=== PATIENT | male | born 1930 | race Hispanic/Latino ===

== ENCOUNTER 2020-12-10 14:37 | Emergency (ER) | payer OTHER ==
--- OUTSIDE RECORDS SUMMARY | 2020-12-10 14:39 | XMS REPORT | Continuity of Care Document ---
:1930 Author Organization [facility] t Address [address] [place] [address] Dr. 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 00:00: Practi c 00 e Body mass Body Mass Problem Active 2020-0 Sourav raheem index Index 02-17 Family 25-29 - 25-29 - 00:00: Practic overweight Overweight 00 e Alzheimer' Alzheimer' Problem Active 2020-0 V illage s disease s Disease 02-17 Fami ly 00:00: Practic 00 e 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 00:00: Pr actic a a 00 e Fatigue Fatigue Problem Active 2020-0 [facility] - Family 00:00: Practic 00 e Urinary Urinary Problem Active 2020-0 [facility] incontinen Incontinen 6 earle ce ce 00:00: Practic 00 e Depression Depression Problem Active 2020-0 [facility] screening Screening 6 Fami ly 00:00: Practic 00 e Advance Advance Problem Active 2020-0 [place] directive Directive 02-17 Fami ly discussed Discussed 00:00: Prac tic with with 00 e patient Patient Dementia Problem Active 2020-11-27 Mem oria (disorder) 22:57:06 l Dementia Shaheen n (disorder) Active Problem 11/27/2020 [facility] 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 22:57:06 l (disorder) Shaheen n Hypothyroi dism (disorder) Active Problem 11/27/2020 [facility] Lumbar Problem Active 2020-11-27 Memor ia radiculopa 22:57:06 l thy Lumbar Omkar (disorder) radiculopa thy (disorder) Active Problem 11/27/2020 [facility] Allergies, Adverse Reactions, Alerts Allergy Allergy Status Severity Reaction(s) Onset Inactive Treating Comm ents Source Name Type Date Date Clinician PENICILL Allergy Active Mild Rash [place] INS to Family substanc Practic e e penicill penicill Active Memori a in in izzy Espitia Social History Smoking Status Start Date Stop Date Source Heavy Tobacco Smoker [facility] Social History 2020-01-01 14:49:04 [facility] Medications Ordered Filled Start Stop Current Ordering Indication Dosage Frequency Signature Comments Components Source Medication Medication Date Date Medication? Clinician (SIG) Name Name Donepezil Yes 5 mg = 1 Eliu johann hydrochlori 4-16 tab, PO, l de 5 MG 14:44: Daily, # Shaheen n Oral Tablet 00 30 tab, 6 [Aricept] Refill(s), Pharmacy: [facility] 149 bimatoprost Yes 1 drp, Eliu johann 0.1 MG/ML 6-06 BOTH EYES, l Ophthalmic 19:11: Bedtime, # H ermann Solution 00 5 mL, 4 [Lumigan] Refill(s) lisinopril Yes 20 mg = 1 Me moria 20 mg oral 6-06 tab, PO, l tablet 19:11: Daily, # [place] 00 30 tab, 0 Refill(s) 24 HR Yes 1 cap, PO, Memori a Donepezil 1-04 Daily, # l hydrochlori 19:57: 90 cap, 2 H ermann de 10 MG / 00 Refill(s), [facility] Pharmacy: hydrochlori [facility] de 28 MG [facility] Extended 149 Release Oral Capsule [Namzaric] finasteride Yes 5 mg = 1 Me moria 5 mg oral 1-04 tab, PO, l tablet 19:41: Daily, # Omkar 00 30 tab, 0 Refill(s) levothyroxi Yes 50 Memori a ne 50 mcg 1-04 microgram l (0.05 mg) 19:41: = 1 tab, Herm maya oral tablet 00 PO, Daily, # 30 tab, 0 Refill(s) 24 HR No 1 cap, PO, Memori a Donepezil 1-04 Daily, 0 l hydrochlori 19:41: Refill(s) H ermann de 10 MG / 00 Memantine hydrochlori de 28 MG Extended Release Oral Capsule [Namzaric] tamsulosin No 0.4 mg = 1 M emoria 0.4 mg oral 1-04 cap, PO, l capsule 19:41: Daily, # Shaheen n 00 30 cap, 0 Refill(s) celecoxib celecoxib No 1capsul Q1D celecoxib [facility] 100 mg 100 mg e(s) 100 mg Family capsule capsule capsule Practi c Take 1 Take 1 Take 1 e capsule capsule capsule every day every day every day by oral by oral by oral route. route. route. donepezil 5 donepezil 5 No 1 Q1D donepezil [facility] mg tablet mg tablet 5 mg Famil y Take 1 Take 1 tablet Practic tablet tablet Take 1 e every day every day tablet by oral by oral every day route. route. by oral route. Fluzone Fluzone No Fluzone [facility] High-Dose High-Dose High-Dose Family Practi c (PF) 180 (PF) 180 (PF) 180 e mcg/0.5 mL mcg/0.5 mL mcg/0.5 mL intramuscul intramuscul intramuscu ar syringe ar syringe lar syringe ibuprofen ibuprofen No 2 ibuprofen [facility] 200 mg 200 mg 200 mg Family tablet Take tablet Take tablet Practic 2 tablets 2 tablets Take 2 e as needed as needed tablets as by oral by oral needed by route. route. oral route. oxybutynin oxybutynin No 1 Q1D oxybutynin [facility] chloride ER chloride ER chloride Family 15 mg 15 mg ER 15 mg Practic tablet,exte tablet,exte tablet,ext e nded nded ended release 24 release 24 release 24 hr Take 1 hr Take 1 hr Take 1 tablet tablet tablet every day every day every day by oral by oral by oral route. route. route. tamsulosin tamsulosin No 1capsul Q1D tamsulosin [facility] 0.4 mg 0.4 mg e(s) 0.4 mg Family capsule capsule capsule Practi c Take 1 Take 1 Take 1 e capsule capsule capsule every day every day every day by oral by oral by oral route. route. route. Immunizations Ordered Immunization Filled Immunization Date Status Commen ts Source Name Name influenza, influenza, 2019-09-18 Completed [facility] injectable, injectable, 00:00:00 Practice quadrivalent quadrivalent Vital Signs Vital Name Observation Time Observation Value Comments Source Height 2020-03-22 00:00:00 63 [in_i] [facility] Practice BMI (Body Mass 2020-03-22 00:00:00 29.2 kg/m2 [facility] Index) Practice Body Weight 2020-03-22 00:00:00 165 [lb_av] [facility] Height 2020-02-18 00:00:00 63 [in_i] [facility] BMI (Body Mass 2020-02-18 00:00:00 26.6 kg/m2 [facility] Index) Practice Body Weight 2020-02-18 00:00:00 150 [lb_av] [facility] Systolic (mm Hg) 2019-08-22 19:57:00 Eliu rial [place] Diastolic (mm Hg) 2019-08-22 19:57:00 Mem orial [place] Heart Rate 2019-08-22 19:57:00 [facility] [place] Respitory Rate 2019-08-22 19:57:00 Memori al [place] Height 2019-08-22 19:57:00 160.02 cm [facility] [place] Weight 2019-08-22 19:57:00 [facility] [place] BMI Calculated 2019-08-22 19:57:00 Memori al [place] Weight 2019-02-20 19:07:00 [facility] [place] BMI Calculated 2019-02-20 19:07:00 Memori al [place] Height 2019-02-20 19:07:00 162.56 cm [facility] [place] Respitory Rate 2019-02-20 19:07:00 Memori al [place] Heart Rate 2019-02-20 19:07:00 [facility] [place] Systolic (mm Hg) 2019-02-20 19:07:00 Eliu rial [place] Diastolic (mm Hg) 2019-02-20 19:07:00 Mem orial [place] Heart Rate 2018-09-20 19:32:00 [facility] [place] BMI Calculated 2018-09-20 19:32:00 Memori al [place] Weight 2018-09-20 19:32:00 [facility] [place] Height 2018-09-20 19:32:00 165.1 cm [facility] [place] Systolic (mm Hg) 2018-09-20 19:32:00 Eliu britt [place] Diastolic (mm Hg) 2018-09-20 19:32:00 Mem orial [place] Respitory Rate 2018-09-20 19:32:00 Memori al [place] Procedures This patient has no known procedures. Plan of Care Planned Activity Planned Date Details Comments Source Diagnostic Test 2020-03-22 PSA, serum or Janice lujan Pending 00:00:00 plasma [code = Practice PSA, serum or plasma] Encounters Start End Encounter Admission Attending Care Care Encounter Source Date/Time Date/Time Type Type Clinicians Facility Department ID 2020-11-25 2020-11-25 Outpatient YASSINE Menendez [facility] [id number] 13:45:00 13:45:00 Jian [facility] 2020-03-22 2020-03-22 Joe [place] - [id number] [facility] 00:00:00 00:00:00 Malcolm PATHOLOGY MANAGER: Janice lujan [address] [facility], [email or web address] [place] [phone] , Ph. 2020-02-18 2020-02-18 Joe [place] - [id number] [facility] 00:00:00 00:00:00 Malcolm PATHOLOGY MANAGER: Janice lujan [address] [facility], [email or web address] [place] [phone] , Ph. 2020-02-12 2020-02-12 Outpatient RADHA MenendezSCHER [facility]ER [id number] 11:30:00 11:30:00 Jian Joselito 2020-01-01 2020-01-01 Outpatient RADHA MenendezSCHADRIENNE [facility]ATS[facility] [id number] 09:45:00 23:59:59 Jian Joselito 2019-10-23 2019-10-23 Outpatient RADHA MenendezSCHER [facility] [id number] 13:45:00 13:45:00 Jian Joselito 2019-08-22 2019-08-22 Outpatient YASSINE Menendez [facility] [id number] 13:30:00 23:59:59 Jian 02 Joselito 2019-02-20 2019-02-20 Outpatient Gemma [facility] [id number] 13:30:00 23:59:59 Jian Joselito 2018-09-20 2018-09-20 Outpatient Gemma [facility] [id number] 13:15:00 23:59:59 Jian Joselito Results This patient has no known results.
[2020-12-10] MEDS ORDERED: ACETAMINOPHEN 325 MG TABLET ONE (18:03)
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
[2020-12-10 20:00] LABS: Absolute Lymphocytes (CBC) 1.5 K/uL (0.7-4.9); Basophils % 0.4 % (0-1.3); Hematocrit 35.7 % (39.6-49.0); Lymphocytes % 19.8 % (15.3-44.8); MPV 8.4 fL (7.6-11.3); RBC Red Blood Cell Count 4.07 M/uL (4.33-5.43)
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
[2020-12-10] MEDS ORDERED: FENTANYL CITR 100 MCG/2 ML ONE (23:43)
[2020-12-11 17:05] VITALS: TEMP 98.1
[2020-12-11 17:06] VITALS: O2SAT 97
[2020-12-11 17:08] VITALS: BP 164/78
== END 2020-12-11 00:31 | disposition short-term general hospital (02) ==
LOC: ER 14:37
DX: S12.000A Unspecified displaced fracture of first cervical vertebra, initial encounter for closed fracture (principal); V43.52XA Car driver injured in collision with other type car in traffic accident, initial encounter; Z20.822 Contact with and (suspected) exposure to COVID-19; F03.90 Unspecified dementia, unspecified severity, without behavioral disturbance, psychotic disturbance, mood disturbance, and anxiety; F17.210 Nicotine dependence, cigarettes, uncomplicated; Z88.0 Allergy status to penicillin
CPT/HCPCS: 93005; 85025; 80048; 36415; 86900; 86850; 85610; 86901; 85730; 70450; 72125; 71260; 74177; 72170; 73502; 73562; 96374; 99285; U0003; Q9967; J3010

== ENCOUNTER 2020-12-17 17:24 | Emergency (ER) | payer OTHER ==
--- OUTSIDE RECORDS SUMMARY | 2020-12-17 17:28 | XMS REPORT | Continuity of Care Document ---
:1930 Author Organization [facility] t Address [address] [place] [address] Dr. Gillis [address] [place] [address] Care Team Providers Name Role Phone Joselito [...] 00 e Urinary Urinary Problem Active 2020-0 [facility] incontinen Incontinen 6 earle ce ce 00:00: [...] Memor ia radiculopa 22:57:06 l thy Lumbar [place] (disorder) radiculopa thy (disorder) Active Problem 11/27/2020 [facility] Allergies, Adverse Reactions, Alerts Allergy Allergy Status Severity Reaction(s) Onset Inactive Treating Comm ents Source Name Type Date Date Clinician PENICILL Allergy Active Mild Rash [place] [facility] to Family substanc Practic e e penicill penicill Active Memori a in in izzy Espitia Social History Smoking Status Start Date Stop Date Source Heavy Tobacco Smoker [facility] Social History 2020-01-01 14:49:04 [facility] Medications Ordered Filled Start Stop Current Ordering Indication Dosage Frequency Signature Comments Components Source Medication Medication Date Date Medication? Clinician (SIG) Name Name Donepezil Yes 5 mg = 1 Eliu johann hydrochlori 4-16 tab, PO, l de 5 MG 14:44: Daily, # Shaheen n Oral Tablet 00 30 tab, 6 [Aricept] Refill(s), Pharmacy: [facility] 149 bimatoprost Yes 1 drp, Eliu johann 0.1 MG/ML 6-06 BOTH EYES, l Ophthalmic 19:11: Bedtime, # H ermann Solution 00 5 mL, 4 [Lumigan] Refill(s) lisinopril Yes 20 mg = 1 Me moria 20 mg oral 6-06 tab, PO, l tablet 19:11: Daily, # Omkar 00 30 tab, 0 Refill(s) 24 HR Yes 1 cap, PO, Memori a Donepezil 1-04 Daily, # l hydrochlori 19:57: 90 cap, 2 H ermann de 10 MG / 00 Refill(s), [facility] Pharmacy: hydrochlori [facility] de 28 MG [facility] Extended 149 Release Oral Capsule [Namzaric] finasteride [...] Refill(s) celecoxib celecoxib No 1capsul Q1D celecoxib [facility] 100 mg 100 mg e(s) 100 mg [...] lar syringe ibuprofen ibuprofen No 2 ibuprofen [facility] 200 mg 200 mg 200 mg Family tablet Take tablet Take tablet Practic 2 tablets 2 tablets Take 2 e as needed as needed tablets as by oral by oral needed by route. route. oral route. oxybutynin oxybutynin No 1 Q1D oxybutynin [facility] chloride ER chloride ER chloride Family 15 mg 15 mg ER 15 mg Practic tablet,exte tablet,exte tablet,ext e nded nded ended release 24 release 24 release 24 hr Take 1 hr Take 1 hr Take 1 tablet tablet tablet every day every day every day by oral by oral by oral route. route. route. tamsulosin tamsulosin No 1capsul Q1D tamsulosin [facility] 0.4 mg 0.4 mg e(s) 0.4 mg Family capsule capsule capsule Practi c Take 1 Take 1 Take 1 e capsule capsule capsule every day every day every day by oral by oral by oral route. route. route. Immunizations Ordered Immunization Filled Immunization Date Status Commen ts Source Name Name influenza, influenza, 2019-09-18 Completed [facility] injectable, injectable, 00:00:00 Practice quadrivalent quadrivalent Vital Signs Vital Name Observation Time Observation Value Comments Source Height 2020-03-22 00:00:00 63 [in_i] [facility] Practice BMI (Body Mass 2020-03-22 00:00:00 29.2 kg/m2 [facility] Body Weight 2020-03-22 00:00:00 165 [lb_av] [facility] Height 2020-02-18 00:00:00 63 [in_i] [facility] BMI (Body Mass 2020-02-18 00:00:00 26.6 kg/m2 [facility] Body Weight 2020-02-18 00:00:00 150 [lb_av] [facility] Systolic (mm Hg) 2019-08-22 19:57:00 Eliu rial [place] Diastolic (mm Hg) 2019-08-22 19:57:00 Mem orial [facility] Heart Rate 2019-08-22 19:57:00 [facility] Respitory Rate 2019-08-22 19:57:00 [facility] al [place] Height 2019-08-22 19:57:00 160.02 cm [facility] Weight 2019-08-22 19:57:00 [facility] [place] BMI Calculated 2019-08-22 19:57:00 [facility] [place] Weight 2019-02-20 19:07:00 [facility] BMI Calculated 2019-02-20 19:07:00 [facility] [place] Height 2019-02-20 19:07:00 162.56 cm [facility] Respitory Rate 2019-02-20 19:07:00 Memori al [facility] Heart Rate 2019-02-20 19:07:00 [facility] [place] Systolic (mm Hg) 2019-02-20 19:07:00 Eliu rial [place] Diastolic (mm Hg) 2019-02-20 19:07:00 Mem orial [place] Heart Rate 2018-09-20 19:32:00 [facility] [place] BMI Calculated 2018-09-20 19:32:00 [facility] [place] Weight 2018-09-20 19:32:00 [facility] Height 2018-09-20 19:32:00 165.1 cm [facility] [place] Systolic (mm Hg) 2018-09-20 19:32:00 Eliu britt [place] Diastolic (mm Hg) 2018-09-20 19:32:00 Mem orial [place] Respitory Rate 2018-09-20 19:32:00 Memori al Omkar [...] ID 2020-11-25 2020-11-25 Outpatient YASSINE Menendez MHMISCHER [id number] 13:45:00 13:45:00 Jian [facility] 2020-03-22 2020-03-22 Joe [place] - [id number] [facility] 00:00:00 00:00:00 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 2020-02-12 2020-02-12 Outpatient RADHA MenendezSCHER MHMISCHER [id number] 11:30:00 11:30:00 Jian Joselito 2020-01-01 2020-01-01 Outpatient RADHA MenendezSCHADRIENNE MHKATSCHER [id number] 09:45:00 23:59:59 Jian Joselito 2019-10-23 2019-10-23 Outpatient RADHA MenendezSCHER MHMISCHER [id number] 13:45:00 13:45:00 Jian Joselito 2019-08-22 2019-08-22 Outpatient YASSINE Menendez MHMISCHER [id number] 13:30:00 23:59:59 Jian 02 Joselito 2019-02-20 2019-02-20 Outpatient Gemma [facility] [id number] 13:30:00 23:59:59 Jian Joselito 2018-09-20 2018-09-20 Outpatient Gemma [facility] [id number] 13:15:00 23:59:59 Jian Joselito Results This patient has no known results.
[2020-12-17] MEDS ORDERED: NA CHLORIDE 0.9% 250 ML ONE (18:12)
[2020-12-17 18:28] LABS: Absolute Lymphocytes (CBC) 1.4 K/uL (0.7-4.9); Basophils % 0.6 % (0-1.3); Hematocrit 35.8 % (39.6-49.0); Lymphocytes % 18.9 % (15.3-44.8); MPV 8.7 fL (7.6-11.3); RBC Red Blood Cell Count 4.06 M/uL (4.33-5.43)
[2020-12-17 18:33] LABS: Protime INR 0.96
[2020-12-17 18:52] LABS: ALT/SGPT 29 U/L (12-78); AST/SGOT 20 U/L (15-37); Albumin 3.5 g/dL (3.4-5.0); Alkaline Phosphatase 92 U/L (45-117); BUN Blood Urea Nitrogen 28 mg/dL (7-18); Bicarbonate 30 mmol/L (21-32); Bilirubin Direct 0.1 mg/dL (0-0.2); Bilirubin Total 0.3 mg/dL (0.2-1.0); Glucose Level 98 mg/dL (74-106); Magnesium 2.3 mg/dL (1.8-2.4); NT PRO-BNP 228 pg/mL (<450); Protein, Total 6.7 g/dL (6.4-8.2); Sodium Level 142 mmol/L (136-145); Troponin (Emerg Dept Use Only) < 0.02 ng/mL (0.0-0.045)
[2020-12-17 19:11] LABS: Urine Blood Trace-intact (Negative); Urine Glucose Negative (Negative); Urine Protein Trace (Negative); Urine Specific Gravity >=1.030 (1.005-1.030); Urine pH 5.5 (5.0-7.0)
--- NOTE | 2020-12-17 19:15 | RAD REPORT ---
EXAM DESCRIPTION: CT - Head C Spine Mpr Wo Con - 12/17/2020 6:52 pm CLINICAL HISTORY: Leg numbness and weakness COMPARISON: December 10, 2020 TECHNIQUE: Computed axial tomography of the head and cervical spine was obtained. Sagittal and coronal reconstruction was performed. All CT scans are performed using dose optimization technique as appropriate and may include automated exposure control or mA/KV adjustment according to patient size. FINDINGS: An intracranial bleed is not seen. The ventricles are normal in caliber. An extra-axial fl uid collection is not noted.Fluid within the visualized sinuses and mastoids is not seen Subacute nondisplaced fracture left lamina C1 unchanged in appearance since prior exam. No dislocatio n. 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 Subacute nondisplaced fracture left lamina of C1. If patient has clinical symptoms to suggest spinal cord pathology MRI would be recommended
[2020-12-17 19:46] LABS: Urine Bacteria <20 /HPF (NONE SEEN); Urine Mucus 1+ /HPF (NONE SEEN); Urine Sperm PRESENT (NONE SEEN)
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
[2020-12-18 08:59] VITALS: TEMP 98
[2020-12-18 09:01] VITALS: BP 172/70; O2SAT 98
== END 2020-12-17 20:08 | disposition home or self-care (01) ==
LOC: ER 17:24
DX: R53.1 Weakness (principal); F03.90 Unspecified dementia, unspecified severity, without behavioral disturbance, psychotic disturbance, mood disturbance, and anxiety; Z88.0 Allergy status to penicillin
CPT/HCPCS: 85025; 80048; 36415; 83735; 85610; 80076; 84484; 83880; 70450; 72125; 96374; 99284; J7050; 81003; 81015; 93005

== ENCOUNTER 2022-04-11 06:42 | Day surgery (SDC) | payer OTHER ==
--- NOTE | 2022-04-06 16:06 | RAD REPORT ---
EXAM DESCRIPTION: RAD - Chest Pa And Lat (2 Views) - 04/06/2022 3:58 pm CLINICAL HISTORY: Pre op pending TURP COMPARISON: CHEST PA AND LAT 2 VIEW dated 10/08/2009; ABDOMEN ACUTE SERIES dated 10/10/2008; CHEST SIN GLE VIEW dated 10/06/2008; CHEST PA AND LAT 2 VIEW dated 02/05/2008 FINDINGS: Lines: None. Lungs: No evidence of edema or pneumonia. Pleural: No significant pleural effusions or pneumothorax. Cardiac: The heart size is within normal limits. Bones: No acute fractures. Soft tissue anchors in the humeral heads. Other: IMPRESSION: No acute cardiopulmonary disease.
[2022-04-06 16:25] LABS: Absolute Lymphocytes (CBC) 1.4 K/uL (0.7-4.9); Hematocrit 38.7 % (39.6-49.0); MCV 88.2 fL (80-100); MPV 8.2 fL (7.6-11.3); RBC Red Blood Cell Count 4.39 M/uL (4.33-5.43)
[2022-04-06 16:26] LABS: Protime INR 0.98
[2022-04-06 16:31] LABS: SARS-CoV-2 Antigen Rapid Res Negative (Negative)
[2022-04-06 16:37] LABS: Potassium 4.2 mmol/L (3.5-5.1)
[2022-04-11] MEDS ORDERED: CLINDAMYCIN 600MG/D5W 600 MG/50 ML BAG IV SCH (07:00)
[2022-04-11] MEDS ORDERED: Gentamicin Inj 120 MG in NA CHLORIDE 0.9% 100 ML IV SCH (07:00)
[2022-04-11] MEDS ORDERED: Ringers Lactate 1,000 ML IV ONE (07:14)
[2022-04-11] MEDS ORDERED: FENTANYL CITR 100 MCG/2 ML ONE (07:18)
[2022-04-11] MEDS ORDERED: MIDAZOLAM HCL 2 MG/2 ML INJ ONE (07:18)
[2022-04-11] MEDS ORDERED: propofoL 200 MG/20 ML VIAL IV ONE ×5 (07:18→09:03)
[2022-04-11] MEDS ORDERED: LIDOCAINE 1% MPF 5 ML VIAL ONE (07:18)
[2022-04-11 11:13] VITALS: TEMP 97.7; O2SAT 100
[2022-04-11 12:22] VITALS: BP 128/58
--- NOTE | 2022-04-11 18:11 | OP ---
Surgeon: NATALY HOYOS Preoperative Diagnoses: 1.Bladder calculi. 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 3.BPH with lower urinary tract obstruction and irritative urinary symptoms. 4.Urge incontinence. Postoperative Diagnoses: 1.Bladder calculi. 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 3.BPH with lower urinary tract obstruction and irritative urinary symptoms. 4.Urge incontinence. Principle Procedures: 1.Meatal dilation using sounds. 2.Cystolitholapaxy using the stone lime sludge kiln operator device with laser on standby. 3.Bipolar transurethral resection of the prostate. Indication For Procedure: Mr. Ryan presented to the Urology Clinic with urinary retention and irri tative lower urinary symptoms. He underwent evaluation, which revealed the presence of significant o bstruction due to BPH and the presence of bladder calculi, several of which were within the prostatic urethra. He presents today for definitive management of both. Procedure In Detail: The patient was consented in the preoperative holding area before being transfe rred to operative suite where general anesthesia was induced. He was given ampicillin 2 g and gentam icin approximately 2 mg/kg IV antimicrobial prophylaxis and pneumo boots were provided for DVT prophy laxis. He was placed in the lithotomy position, padded and secured to the table appropriately. His genitalia were prepped using Hibiclens and he was draped in standard fashion. The case was begun usi ng urethral sounds to dilate the meatus and fossa navicularis to 28-Ethiopian, and I initially performed a standard 22-Ethiopian rigid cystoscopic evaluation. Again, there were at least a couple of calculi w ithin the prostatic urethra, and upon entering the bladder, there was significant cloudiness of the u rine. The bladder was decompressed of fluid and urine, and surveyed, and there were additional bladd er calculi each between 0.5 and 1 cm in diameter. As a result, I removed the cystoscope after irriga ting his bladder free of the cloudiness, and I replaced it using a 26-Ethiopian resectoscope sheath with visual obturator. Upon entry into the bladder, I was then able to switch the visual obturator with a stone lime sludge kiln operator device, and I was able to crush the stone fragments into size small enough to be wisam arabella via the scope using an [employer] evacuator. Once all of the stones had been sufficiently crushed and the majority of them removed, I then replaced the stone lime sludge kiln operator device with the resectoscope loop an d began a channel transurethral resection of the prostate. I initially resected the median lobe and the median bar taking care to keep the ureteral orifices in direct visualization when resecting down to the level of the bladder neck. I then resected the median bar down to the level of the verumontan um. Because there was significant interdigitating lateral lobar hypertrophy, I had to resect additio nal tissue bilaterally extending from the bladder neck to the apex in order to remove the interdigita ting tissue. At the bladder neck, where there was some intravesical projection, resection of that ti ssue was also performed. Resection was continued until a nice, patent and continuous channel was cre ated from the verumontanum through into the bladder neck without interdigitating tissue intervening. Along the way, careful fulguration was performed, and I then removed the prostate chips using an Ell moustapha evacuator. With the bladder decompressed, additional fulguration was performed as there were pers istent oozing vessels, and extensive fulguration of the prostatic fossa was performed in order to ach ieve complete hemostasis. I then again Ellik evacuated his bladder removing any final prostate chips , which were resected in order to continue the smoothness of the channel, and then again fulgurated i n order to achieve complete hemostasis with the bladder decompressed and no inflow of fluid. Once th is had been achieved, I then removed the resectoscope and replaced it with a 22-Ethiopian 3-way Noriega ca theter. 30 cc of sterile water was placed in the balloon and I irrigated the catheter using a 60 cc catheter tip syringe and removed a small clot. The returning efflux was otherwise very light pink, s o I connected the catheter to CBI and took the patient out of the lithotomy position. The catheter w as placed to traction, and he was then awakened from general anesthesia before being transferred to a stretcher and then to the recovery room in good condition. Complications: None. Discharge Disposition: He will maintain the urethral Noriega catheter until Sunday of next week and we will do a voiding trial at that time. He also will have a prescription for oral antimicrobial thera py to continue at least through next Sunday and Sunday. WR/MODL Voice ID: [id number] Report ID: [id number]
== END 2022-04-11 12:15 | disposition home or self-care (01) ==
LOC: OR 06:42
PROVIDERS: ATTEND Urology
PROC: 0TCB8ZZ Extirpation of Matter from Bladder, Via Natural or Artificial Opening Endoscopic (ICD-10-PCS; 2022-04-11)
PROC: 0VT08ZZ Resection of Prostate, Via Natural or Artificial Opening Endoscopic (ICD-10-PCS; principal; 2022-04-11 07:30)
DX: N21.0 Calculus in bladder (principal); N40.1 Benign prostatic hyperplasia with lower urinary tract symptoms; R39.15 Urgency of urination; Z20.822 Contact with and (suspected) exposure to COVID-19; E03.9 Hypothyroidism, unspecified; F03.90 Unspecified dementia, unspecified severity, without behavioral disturbance, psychotic disturbance, mood disturbance, and anxiety
CPT/HCPCS: 87088; 85025; 87086; 80048; 36415; 85610; 88300; 88305; 71046; 87811; 52601; 52317; J2704 ×5; J1580; J3010; J7120; J2250